=== PATIENT | male | born 1960 | race Caucasian/White ===

== ENCOUNTER 2022-07-03 08:36 | Inpatient (IN) | payer MEDICARE ==
[~2022-07-03] VITALS: Ht 182.9 cm; Wt 72.6 kg
[2022-07-03 09:03] LABS: BASOPHILS % 0.2 % (0.0-1.0); EOSINOPHILS % 0.1 % (0.0-6.0); HEMATOCRIT 35.7 % (38.2-49.6); HEMOGLOBIN 10.5 g/dL (14.0-18.0); LYMPHOCYTES # (AUTO) 0.5 (1.0-3.2); LYMPHOCYTES % 3.2 % (18.0-39.1); MEAN CORPUSCULAR HEMOGLOBIN 24.4 pg (28-32); MEAN CORPUSCULAR HGB CONC 29.4 g/dL (31-35); MONOCYTES # (AUTO) 0.6 (0.2-0.8); MONOCYTES % 3.5 % (4.4-11.3); NEUTROPHILS # (AUTO) 15.1 (2.1-6.9); NEUTROPHILS % 92.3 % (38.7-80.0); PLATELET COUNT 191 x10e3/uL (140-360)
[2022-07-03] MEDS ORDERED: SODIUM CHLORIDE 0.9% 500ML 500 ML IV ONE (09:15)
[2022-07-03 09:44] LABS: ALBUMIN 1.6 g/dL (3.5-5.0); ALBUMIN/GLOBULIN RATIO 0.4 (0.8-2.0); ANION GAP 16.5 mmol/L (8-16); CALCIUM 7.3 mg/dL (8.4-10.2); CREATININE, SERUM 1.99 mg/dL (0.72-1.25); MAGNESIUM 1.8 MG/DL (1.3-2.1); POTASSIUM 3.5 mmol/L (3.5-5.1)
[2022-07-03 09:56] LABS: CREATINE KINASE MB 1.7 ng/mL (0-5.0)
[2022-07-03] MEDS ORDERED: ONDANSETRON HCL INJ 2MG/ML 2ML 2 MG/ML VIAL IV PRN (10:00)
[2022-07-03] MEDS ORDERED: Vancomycin IV 1 GM in SODIUM CHLORIDE 0.9% 250ML 250 ML IV ONE (10:00)
[2022-07-03] MEDS ORDERED: HYDROCODONE/APAP 10MG-325MG TAB PO ONE (10:30)
[2022-07-03 10:38] LABS: INR 1.5; PROTHROMBIN TIME 18.3 seconds (11.9-14.5)
[2022-07-03 10:39] LABS: PARTIAL THROMBOPLASTIN TIME 40.8 seconds (23.8-35.5)
[2022-07-03] MEDS ORDERED: DOCUSATE SODIUM 100 MG CAP PO PRN (11:30)
[2022-07-03] MEDS ORDERED: ZINC OXIDE / BALSAM PERU 30 GM TUBE TOP PRN (12:00)
[2022-07-03] MEDS ORDERED: MIDAZOLAM HCL 2 MG/2 ML VIAL ONE (12:45)
[2022-07-03] MEDS ORDERED: FENTANYL CITRATE/PF 100MCG/2 ML INJ ONE (12:45)
[2022-07-03] MEDS: Clindamycin INJ 300 MG/50 ML 50 ML IV SCH ×2 (15:23→21:28)
[2022-07-03] MEDS ORDERED: SODIUM CHLORIDE 0.9% 250ML 250 ML ONE (15:30)
[2022-07-03 16:32] LABS: CREATINE KINASE MB 2.2 ng/mL (0-5.0)
[2022-07-03 17:06] VITALS: BP 128/66
[2022-07-03 20:00] VITALS: BP 139/76
[2022-07-03 21:00] VITALS: BP 139/76
[2022-07-04] VITALS (8 sets, daily range): BP systolic 124–139; BP diastolic 57–80
[2022-07-04] MEDS: Clindamycin INJ 300 MG/50 ML 50 ML IV SCH ×2 (05:28→13:29)
[2022-07-04 05:59] LABS: BASOPHILS % 0.2 % (0.0-1.0); EOSINOPHILS % 0.2 % (0.0-6.0); HEMATOCRIT 41.6 % (38.2-49.6); HEMOGLOBIN 12.5 g/dL (14.0-18.0); LYMPHOCYTES # (AUTO) 1.1 (1.0-3.2); LYMPHOCYTES % 6.2 % (18.0-39.1); MEAN CORPUSCULAR HEMOGLOBIN 24.2 pg (28-32); MEAN CORPUSCULAR VOLUME 80.5 fL (81-99); MONOCYTES # (AUTO) 0.8 (0.2-0.8); MONOCYTES % 4.6 % (4.4-11.3); NEUTROPHILS # (AUTO) 14.9 (2.1-6.9); NEUTROPHILS % 86.9 % (38.7-80.0); PLATELET COUNT 173 x10e3/uL (140-360); RED BLOOD COUNT 5.17 x10e6/uL (4.3-5.7); RED CELL DISTRIBUTION WIDTH 16.5 % (11.7-14.4)
[2022-07-04 06:25] LABS: ALBUMIN 1.6 g/dL (3.5-5.0); ALBUMIN/GLOBULIN RATIO 0.4 (0.8-2.0); ANION GAP 17.1 mmol/L (8-16); CALCIUM 7.9 mg/dL (8.4-10.2); CREATININE, SERUM 2.3 mg/dL (0.72-1.25); POTASSIUM 3.1 mmol/L (3.5-5.1)
[2022-07-04 08:45] LABS: CREATINE KINASE MB 1.5 ng/mL (0-5.0)
[2022-07-04 14:26] LABS: CREATINE KINASE MB 1.4 ng/mL (0-5.0)
[2022-07-04] MEDS: FUROSEMIDE INJ 10 MG/ML 4 ML VIAL IV SCH (17:03)
[2022-07-04] MEDS: TRAMADOL HCL 50 MG TAB PO PRN (17:03)
[2022-07-04] MEDS ORDERED: Vancomycin IV 1 GM in SODIUM CHLORIDE 0.9% 250ML 250 ML IV SCH ×2 (17:15→18:00)
[2022-07-04] MEDS: BALSAM PERU/CASTOR OIL 60 GM OINT...G. TP SCH (17:43)
[2022-07-04] MEDS: COLLAGENASE 5 GM TUBE TOP SCH (17:43)
[2022-07-05] VITALS (8 sets, daily range): BP systolic 131–143; BP diastolic 58–69
[2022-07-05] MEDS: TRAMADOL HCL 50 MG TAB PO PRN ×3 (01:47→21:49)
[2022-07-05] MEDS: FUROSEMIDE INJ 10 MG/ML 4 ML VIAL IV SCH (05:09)
[2022-07-05 07:37] LABS: ANION GAP 14.2 mmol/L (8-16); CALCIUM 7.9 mg/dL (8.4-10.2); CREATININE, SERUM 2.47 mg/dL (0.72-1.25); POTASSIUM 3.2 mmol/L (3.5-5.1)
[2022-07-05] MEDS: COLLAGENASE 5 GM TUBE TOP SCH (15:42)
[2022-07-05] MEDS: BALSAM PERU/CASTOR OIL 60 GM OINT...G. TP SCH (15:42)
[2022-07-05] MEDS ORDERED: SODIUM BICARBONATE 8.4% 100 ML in SODIUM CHLORIDE 0.45% 1,000 ML IV SCH (17:30)
[2022-07-05] MEDS: ONDANSETRON HCL INJ 2MG/ML 2ML 2 MG/ML VIAL IV PRN (20:43)
[2022-07-06] VITALS (7 sets, daily range): BP systolic 133–153; BP diastolic 63–68
[2022-07-06 06:01] LABS: BASOPHILS % 0.2 % (0.0-1.0); EOSINOPHILS % 0.2 % (0.0-6.0); HEMATOCRIT 40.2 % (38.2-49.6); HEMOGLOBIN 12.2 g/dL (14.0-18.0); LYMPHOCYTES # (AUTO) 1.2 (1.0-3.2); LYMPHOCYTES % 6.5 % (18.0-39.1); MEAN CORPUSCULAR HEMOGLOBIN 24.2 pg (28-32); MEAN CORPUSCULAR HGB CONC 30.3 g/dL (31-35); MEAN CORPUSCULAR VOLUME 79.8 fL (81-99); MONOCYTES # (AUTO) 0.9 (0.2-0.8); MONOCYTES % 5.2 % (4.4-11.3); NEUTROPHILS # (AUTO) 15.9 (2.1-6.9); NEUTROPHILS % 87.2 % (38.7-80.0); PLATELET COUNT 184 x10e3/uL (140-360); RED BLOOD COUNT 5.04 x10e6/uL (4.3-5.7); RED CELL DISTRIBUTION WIDTH 16.8 % (11.7-14.4)
[2022-07-06 06:19] LABS: CALCIUM 7.8 mg/dL (8.4-10.2); CREATININE, SERUM 2.67 mg/dL (0.72-1.25)
[2022-07-06] MEDS: TRAMADOL HCL 50 MG TAB PO PRN ×3 (09:14→16:41)
[2022-07-06] MEDS: SODIUM BICARBONATE 8.4% 150 ML in DEXTROSE 5% 1,000 ML IV SCH ×2 (11:02→20:56)
[2022-07-06 11:18] LABS: % IRON SATURATION 34 % (15-50); IRON 33 ug/dL (65-175); TOTAL IRON BINDING CAPACITY 98 ug/dL (261-478); TRANSFERRIN 70 mg/dL (174-364)
[2022-07-06 11:42] LABS: CLARITY,URINE SL CLOUDY (CLEAR); COLOR,URINE AMBER (YELLOW); LEUKOCYTE ESTERASE ,URINE NEGATIVE (NEGATIVE); NITRITE,URINE NEGATIVE (NEGATIVE); PROTEIN,URINE DIPSTICK 2+ (NEGATIVE)
[2022-07-06 11:43] LABS: KETONES,URINE NEGATIVE (NEGATIVE); URINE UROBILINOGEN 0.2 mg/dL (0.2 - 1)
[2022-07-06 11:48] LABS: BACTERIA,URINE MANY /HPF; EPITHELIAL CELLS,URINE FEW /LPF; RBC,URINE >50 /HPF (0-5)
[2022-07-06 11:53] LABS: TOTAL PROTEIN, URINE 47.4 mg/dL (1-14)
[2022-07-06 12:43] LABS: CREATININE,URINE RANDOM 75.57 mg/dL (63-166)
[2022-07-06] MEDS: BALSAM PERU/CASTOR OIL 60 GM OINT...G. TP SCH (12:52)
[2022-07-06] MEDS: COLLAGENASE 5 GM TUBE TOP SCH (12:52)
[2022-07-07] VITALS: BP 148/68
[2022-07-07] MEDS: TRAMADOL HCL 50 MG TAB PO PRN ×2 (05:12→21:52)
[2022-07-07 06:23] LABS: ALBUMIN 1.5 g/dL (3.5-5.0); ALBUMIN/GLOBULIN RATIO 0.3 (0.8-2.0); ANION GAP 16.7 mmol/L (8-16); CALCIUM 7.5 mg/dL (8.4-10.2); CREATININE, SERUM 2.41 mg/dL (0.72-1.25)
[2022-07-07 06:28] LABS: POTASSIUM 2.7 mmol/L (3.5-5.1)
[2022-07-07 06:30] LABS: BASOPHILS # (AUTO) 0.1 (0.0-0.1); BASOPHILS % 0.4 % (0.0-1.0); EOSINOPHILS % 0.3 % (0.0-6.0); HEMATOCRIT 35.8 % (38.2-49.6); HEMOGLOBIN 11.5 g/dL (14.0-18.0); LYMPHOCYTES # (AUTO) 1.1 (1.0-3.2); LYMPHOCYTES % 6.8 % (18.0-39.1); MEAN CORPUSCULAR HEMOGLOBIN 24.4 pg (28-32); MEAN CORPUSCULAR HGB CONC 32.1 g/dL (31-35); MEAN CORPUSCULAR VOLUME 75.8 fL (81-99); MONOCYTES # (AUTO) 0.8 (0.2-0.8); MONOCYTES % 5.3 % (4.4-11.3); NEUTROPHILS # (AUTO) 13.4 (2.1-6.9); NEUTROPHILS % 86.2 % (38.7-80.0); PLATELET COUNT 164 x10e3/uL (140-360); RED BLOOD COUNT 4.72 x10e6/uL (4.3-5.7); RED CELL DISTRIBUTION WIDTH 16.9 % (11.7-14.4)
[2022-07-07] MEDS ORDERED: POTASSIUM CHLORIDE 20MEQ/100ML 200 ML IV ONE (07:15)
[2022-07-07 08:14] VITALS: BP 152/75
[2022-07-07] MEDS: COLLAGENASE 5 GM TUBE TOP SCH (09:04)
[2022-07-07] MEDS: BALSAM PERU/CASTOR OIL 60 GM OINT...G. TP SCH (09:04)
[2022-07-07] MEDS: SODIUM BICARBONATE 8.4% 150 ML in DEXTROSE 5% 1,000 ML IV SCH ×2 (10:00→21:54)
[2022-07-07] MEDS ORDERED: Morphine 4mg INJECTION 4 MG/ML INJ IV STA (11:06)
[2022-07-07] MEDS: ONDANSETRON HCL INJ 2MG/ML 2ML 2 MG/ML VIAL IV PRN (11:20)
[2022-07-07 12:09] VITALS: BP 145/72
[2022-07-07] MEDS ORDERED: POTASSIUM CHLORIDE 20 MEQ TAB CR PO ONE (12:30)
[2022-07-07] MEDS ORDERED: ASPIRIN 81 MG ENTERIC COATED PO STA (12:51)
[2022-07-07] MEDS ORDERED: NIFEDIPINE CR 30 MG TAB PO ONE (13:30)
[2022-07-07 16:06] VITALS: BP 137/74
[2022-07-07 20:00] VITALS: BP 159/84
[2022-07-07] MEDS: ATORVASTATIN 40 MG TAB PO SCH (21:51)
[2022-07-07] MEDS ORDERED: METRONIDAZOLE 500MG/NS 100ML 100 ML IV ONE (22:45)
[2022-07-07] MEDS: Clindamycin INJ 300 MG/50 ML 50 ML IV SCH (22:47)
[2022-07-07] MEDS: METRONIDAZOLE 250MG/NS 50ML 50 ML IV SCH (22:51)
[2022-07-08] VITALS (7 sets, daily range): BP systolic 104–125; BP diastolic 59–71
[2022-07-08] MEDS: TRAMADOL HCL 50 MG TAB PO PRN ×2 (05:08→14:14)
[2022-07-08] MEDS: SODIUM BICARBONATE 8.4% 150 ML in DEXTROSE 5% 1,000 ML IV SCH ×2 (05:09→20:34)
[2022-07-08] MEDS: Clindamycin INJ 300 MG/50 ML 50 ML IV SCH ×3 (05:09→22:26)
[2022-07-08] MEDS: METRONIDAZOLE 250MG/NS 50ML 50 ML IV SCH ×2 (09:16→20:36)
[2022-07-08] MEDS: ASPIRIN 81 MG ENTERIC COATED PO SCH (09:17)
[2022-07-08] MEDS: NIFEDIPINE CR 30 MG TAB PO SCH (09:22)
[2022-07-08] MEDS: COLLAGENASE 5 GM TUBE TOP SCH (14:10)
[2022-07-08] MEDS: BALSAM PERU/CASTOR OIL 60 GM OINT...G. TP SCH (14:10)
[2022-07-08] MEDS: ATORVASTATIN 40 MG TAB PO SCH (20:34)
[2022-07-09] MEDS: TRAMADOL HCL 50 MG TAB PO PRN ×2 (00:20→20:40)
[2022-07-09 00:55] VITALS: BP 126/57
[2022-07-09 05:07] VITALS: BP 117/70
[2022-07-09] MEDS: Clindamycin INJ 300 MG/50 ML 50 ML IV SCH ×3 (05:31→20:41)
[2022-07-09 06:05] LABS: INR 1.37; PROTHROMBIN TIME 17.1 seconds (11.9-14.5)
[2022-07-09 06:28] LABS: ALBUMIN 1.6 g/dL (3.5-5.0); ALBUMIN/GLOBULIN RATIO 0.3 (0.8-2.0); ALKALINE PHOSPHATASE 180 IU/L (40-150); ANION GAP 15.9 mmol/L (8-16); BLOOD UREA NITROGEN 64 mg/dL (7-26); BUN/CREATININE RATIO 24 (6-25); CALCIUM 7.9 mg/dL (8.4-10.2); CARBON DIOXIDE 28 mmol/L (22-29); CHLORIDE 91 mmol/L (98-107); CREATININE, SERUM 2.69 mg/dL (0.72-1.25); GLUCOSE 278 mg/dL (74-118); PHOSPHORUS 5.3 MG/DL (2.3-4.7); SODIUM 132 mmol/L (136-145)
[2022-07-09 06:30] LABS: ALANINE AMINOTRANSFERASE < 6 IU/L (0-55)
[2022-07-09 06:31] LABS: POTASSIUM 2.9 mmol/L (3.5-5.1)
[2022-07-09] MEDS: SODIUM BICARBONATE 8.4% 150 ML in DEXTROSE 5% 1,000 ML IV SCH ×2 (08:00→20:46)
[2022-07-09] MEDS: NIFEDIPINE CR 30 MG TAB PO SCH (09:00)
[2022-07-09] MEDS: ASPIRIN 81 MG ENTERIC COATED PO SCH (09:00)
[2022-07-09] MEDS: COLLAGENASE 5 GM TUBE TOP SCH (09:00)
[2022-07-09] MEDS: BALSAM PERU/CASTOR OIL 60 GM OINT...G. TP SCH (09:00)
[2022-07-09 09:02] VITALS: BP 126/59
[2022-07-09 09:15] LABS: ANION GAP 15.9 mmol/L (8-16); CALCIUM 7.8 mg/dL (8.4-10.2); CREATININE, SERUM 2.75 mg/dL (0.72-1.25); MAGNESIUM 2.1 MG/DL (1.3-2.1)
[2022-07-09 09:17] LABS: POTASSIUM 2.9 mmol/L (3.5-5.1)
[2022-07-09] MEDS: METRONIDAZOLE 250MG/NS 50ML 50 ML IV SCH (09:23)
[2022-07-09 09:28] LABS: BASOPHILS # (AUTO) 0.1 (0.0-0.1); BASOPHILS % 0.4 % (0.0-1.0); EOSINOPHILS # (AUTO) 0.1 (0.0-0.4); EOSINOPHILS % 0.3 % (0.0-6.0); HEMOGLOBIN 11.3 g/dL (14.0-18.0); LYMPHOCYTES # (AUTO) 0.9 (1.0-3.2); LYMPHOCYTES % 5.9 % (18.0-39.1); MEAN CORPUSCULAR HEMOGLOBIN 24.1 pg (28-32); MEAN CORPUSCULAR HGB CONC 31.4 g/dL (31-35); MEAN CORPUSCULAR VOLUME 76.8 fL (81-99); MONOCYTES # (AUTO) 0.7 (0.2-0.8); MONOCYTES % 4.7 % (4.4-11.3); NEUTROPHILS # (AUTO) 13.1 (2.1-6.9); NEUTROPHILS % 87.8 % (38.7-80.0); PLATELET COUNT 202 x10e3/uL (140-360); RED BLOOD COUNT 4.69 x10e6/uL (4.3-5.7); RED CELL DISTRIBUTION WIDTH 16.3 % (11.7-14.4)
[2022-07-09] MEDS: POTASSIUM CHLORIDE 20MEQ/100ML 100 ML IV SCH ×3 (10:00→18:12)
[2022-07-09 12:01] VITALS: BP 131/61
[2022-07-09] MEDS ORDERED: ROCURONIUM BROMIDE 10 MG/ML 5ML VIAL IV ONE (12:31)
[2022-07-09] MEDS ORDERED: PROPOFOL IV EMULSION 10 MG/ML 20 ML VIAL ONE (12:31)
[2022-07-09] MEDS ORDERED: POVIDONE IODINE 0.05% 0.05 % ML PO ONE (12:31)
[2022-07-09] MEDS ORDERED: SUCCINYLCHOLINE CHLORIDE 20 MG/ML 10ML VIAL ONE (12:31)
[2022-07-09] MEDS ORDERED: ONDANSETRON HCL INJ 2MG/ML 2ML 2 MG/ML VIAL ONE (12:31)
[2022-07-09] MEDS ORDERED: SEVOFLURANE INHAL SOLN 250 ML PEN BTL ONE (12:31)
[2022-07-09] MEDS ORDERED: LIDOCAINE HCL 2% LOCAL INJ 5 ML SDV VIAL INJ ONE (12:31)
[2022-07-09] MEDS ORDERED: FENTANYL CITRATE/PF 100MCG/2 ML INJ ONE (17:21)
[2022-07-09] MEDS: ATORVASTATIN 40 MG TAB PO SCH (20:40)
[2022-07-09 22:04] VITALS: BP 139/70
[2022-07-09 23:06] VITALS: BP 139/70
[2022-07-10] VITALS (9 sets, daily range): BP systolic 109–140; BP diastolic 60–90
[2022-07-10] MEDS: ONDANSETRON HCL INJ 2MG/ML 2ML 2 MG/ML VIAL IV PRN ×2 (01:54→09:33)
[2022-07-10] MEDS: Morphine 4mg INJECTION 4 MG/ML INJ IV PRN ×3 (01:54→20:35)
[2022-07-10 06:24] LABS: BASOPHILS % 0.2 % (0.0-1.0); EOSINOPHILS # (AUTO) 0.1 (0.0-0.4); EOSINOPHILS % 0.5 % (0.0-6.0); HEMATOCRIT 33.3 % (38.2-49.6); HEMOGLOBIN 10.9 g/dL (14.0-18.0); LYMPHOCYTES # (AUTO) 1.1 (1.0-3.2); LYMPHOCYTES % 8.5 % (18.0-39.1); MEAN CORPUSCULAR HEMOGLOBIN 24.3 pg (28-32); MEAN CORPUSCULAR HGB CONC 32.7 g/dL (31-35); MEAN CORPUSCULAR VOLUME 74.3 fL (81-99); MONOCYTES # (AUTO) 0.7 (0.2-0.8); MONOCYTES % 5.6 % (4.4-11.3); NEUTROPHILS # (AUTO) 10.6 (2.1-6.9); NEUTROPHILS % 84.6 % (38.7-80.0); PLATELET COUNT 221 x10e3/uL (140-360); RED BLOOD COUNT 4.48 x10e6/uL (4.3-5.7); RED CELL DISTRIBUTION WIDTH 16.6 % (11.7-14.4)
[2022-07-10] MEDS: Clindamycin INJ 300 MG/50 ML 50 ML IV SCH ×2 (06:39→14:02)
[2022-07-10 06:44] LABS: ANION GAP 15.4 mmol/L (8-16); CALCIUM 7.8 mg/dL (8.4-10.2); CREATININE, SERUM 2.58 mg/dL (0.72-1.25); MAGNESIUM 2.2 MG/DL (1.3-2.1); POTASSIUM 3.4 mmol/L (3.5-5.1)
[2022-07-10] MEDS: SODIUM BICARBONATE 8.4% 150 ML in DEXTROSE 5% 1,000 ML IV SCH (07:00)
[2022-07-10] MEDS: METOPROLOL SUCCINATE 50 MG TAB XL PO SCH (09:19)
[2022-07-10] MEDS: NIFEDIPINE CR 30 MG TAB PO SCH (09:19)
[2022-07-10] MEDS: ASPIRIN 81 MG ENTERIC COATED PO SCH (09:20)
[2022-07-10] MEDS: POTASSIUM CHLORIDE 20MEQ/100ML 100 ML IV SCH ×2 (11:07→13:30)
[2022-07-10] MEDS: TRAMADOL HCL 50 MG TAB PO PRN (17:06)
[2022-07-10] MEDS: FUROSEMIDE INJ 10 MG/ML 4 ML VIAL IV SCH (20:32)
[2022-07-10] MEDS: ATORVASTATIN 40 MG TAB PO SCH (20:32)
[2022-07-10] MEDS: COLLAGENASE 5 GM TUBE TOP SCH (20:34)
[2022-07-10] MEDS: BALSAM PERU/CASTOR OIL 60 GM OINT...G. TP SCH (21:00)
[2022-07-11] VITALS (8 sets, daily range): BP systolic 93–124; BP diastolic 52–72
[2022-07-11] MEDS: Morphine 4mg INJECTION 4 MG/ML INJ IV PRN ×4 (03:31→23:53)
[2022-07-11 05:11] LABS: ALBUMIN 1.5 g/dL (3.5-5.0); ALBUMIN/GLOBULIN RATIO 0.3 (0.8-2.0); ALKALINE PHOSPHATASE 162 IU/L (40-150); ANION GAP 15.7 mmol/L (8-16); BLOOD UREA NITROGEN 68 mg/dL (7-26); BUN/CREATININE RATIO 28 (6-25); CALCIUM 7.9 mg/dL (8.4-10.2); CARBON DIOXIDE 26 mmol/L (22-29); CHLORIDE 93 mmol/L (98-107); CREATININE, SERUM 2.41 mg/dL (0.72-1.25); GLUCOSE 191 mg/dL (74-118); POTASSIUM 3.7 mmol/L (3.5-5.1); SODIUM 131 mmol/L (136-145)
[2022-07-11 05:20] LABS: ALANINE AMINOTRANSFERASE < 6 IU/L (0-55)
[2022-07-11] MEDS: FUROSEMIDE INJ 10 MG/ML 4 ML VIAL IV SCH (08:35)
[2022-07-11] MEDS: METOPROLOL SUCCINATE 50 MG TAB XL PO SCH (08:36)
[2022-07-11] MEDS: ASPIRIN 81 MG ENTERIC COATED PO SCH (08:36)
[2022-07-11] MEDS: NIFEDIPINE CR 30 MG TAB PO SCH (08:36)
[2022-07-11] MEDS: COLLAGENASE 5 GM TUBE TOP SCH ×2 (09:00→09:22)
[2022-07-11] MEDS: BALSAM PERU/CASTOR OIL 60 GM OINT...G. TP SCH (09:22)
[2022-07-11] MEDS: ONDANSETRON HCL INJ 2MG/ML 2ML 2 MG/ML VIAL IV PRN ×2 (09:38→16:03)
[2022-07-11] MEDS: TRAMADOL HCL 50 MG TAB PO PRN (12:45)
[2022-07-11] MEDS ORDERED: ZOLPIDEM TARTRATE 5 MG TAB PO PRN (20:15)
[2022-07-11] MEDS: ATORVASTATIN 40 MG TAB PO SCH (20:58)
[2022-07-12] VITALS (7 sets, daily range): BP systolic 107–121; BP diastolic 55–79
[2022-07-12] MEDS: ASPIRIN 81 MG ENTERIC COATED PO SCH (09:20)
[2022-07-12] MEDS: METOPROLOL SUCCINATE 50 MG TAB XL PO SCH (09:21)
[2022-07-12] MEDS: NIFEDIPINE CR 30 MG TAB PO SCH (09:21)
[2022-07-12] MEDS: COLLAGENASE 5 GM TUBE TOP SCH (09:22)
[2022-07-12] MEDS: BALSAM PERU/CASTOR OIL 60 GM OINT...G. TP SCH (09:22)
[2022-07-12] MEDS: TRAMADOL HCL 50 MG TAB PO PRN ×2 (16:23→23:53)
[2022-07-12] MEDS: ATORVASTATIN 40 MG TAB PO SCH (20:25)
[2022-07-13] VITALS (8 sets, daily range): BP systolic 105–130; BP diastolic 54–83
[2022-07-13 06:41] LABS: BASOPHILS # (AUTO) 0.1 (0.0-0.1); BASOPHILS % 0.6 % (0.0-1.0); EOSINOPHILS # (AUTO) 0.1 (0.0-0.4); EOSINOPHILS % 0.7 % (0.0-6.0); HEMOGLOBIN 10.3 g/dL (14.0-18.0); LYMPHOCYTES # (AUTO) 1.1 (1.0-3.2); LYMPHOCYTES % 8.5 % (18.0-39.1); MEAN CORPUSCULAR HEMOGLOBIN 26.9 pg (28-32); MEAN CORPUSCULAR HGB CONC 32.2 g/dL (31-35); MEAN CORPUSCULAR VOLUME 83.6 fL (81-99); MONOCYTES # (AUTO) 0.7 (0.2-0.8); MONOCYTES % 5.3 % (4.4-11.3); NEUTROPHILS # (AUTO) 10.5 (2.1-6.9); NEUTROPHILS % 84.1 % (38.7-80.0); PLATELET COUNT 231 x10e3/uL (140-360); RED BLOOD COUNT 3.83 x10e6/uL (4.3-5.7); RED CELL DISTRIBUTION WIDTH 20.4 % (11.7-14.4)
[2022-07-13 06:45] LABS: ANION GAP 19.1 mmol/L (8-16); CALCIUM 8.1 mg/dL (8.4-10.2); CREATININE, SERUM 2.48 mg/dL (0.72-1.25); POTASSIUM 4.1 mmol/L (3.5-5.1)
[2022-07-13] MEDS: Morphine 4mg INJECTION 4 MG/ML INJ IV PRN ×3 (06:52→20:17)
[2022-07-13] MEDS: ONDANSETRON HCL INJ 2MG/ML 2ML 2 MG/ML VIAL IV PRN ×2 (06:52→14:25)
[2022-07-13] MEDS: COLLAGENASE 5 GM TUBE TOP SCH ×2 (09:00→09:44)
[2022-07-13] MEDS ORDERED: SODIUM CHLORIDE 0.9% 250ML 250 ML ONE (09:31)
[2022-07-13] MEDS: ASPIRIN 81 MG ENTERIC COATED PO SCH (09:44)
[2022-07-13] MEDS: NIFEDIPINE CR 30 MG TAB PO SCH (09:45)
[2022-07-13] MEDS: METOPROLOL SUCCINATE 50 MG TAB XL PO SCH (09:45)
[2022-07-13] MEDS: TRAMADOL HCL 50 MG TAB PO PRN ×2 (09:54→16:07)
[2022-07-13] MEDS: ACETAMINOPHEN 325 MG TAB PO PRN ×2 (09:55→16:07)
[2022-07-13] MEDS: BALSAM PERU/CASTOR OIL 60 GM OINT...G. TP SCH (09:56)
[2022-07-13] MEDS: METOLAZONE 5 MG TAB PO SCH (12:42)
[2022-07-13] MEDS: BUMETANIDE INJ 0.25MG/ML 4ML VIAL IV SCH ×3 (12:42→23:58)
[2022-07-13] MEDS: ATORVASTATIN 40 MG TAB PO SCH (20:16)
[2022-07-14] VITALS (7 sets, daily range): BP systolic 102–126; BP diastolic 57–76
[2022-07-14] MEDS: Morphine 4mg INJECTION 4 MG/ML INJ IV PRN ×3 (03:34→19:17)
[2022-07-14] MEDS: BUMETANIDE INJ 0.25MG/ML 4ML VIAL IV SCH ×3 (05:42→17:17)
[2022-07-14 06:31] LABS: ALBUMIN 1.7 g/dL (3.5-5.0); ALBUMIN/GLOBULIN RATIO 0.4 (0.8-2.0); ALKALINE PHOSPHATASE 250 IU/L (40-150); ANION GAP 16.6 mmol/L (8-16); BLOOD UREA NITROGEN 71 mg/dL (7-26); BUN/CREATININE RATIO 28 (6-25); CARBON DIOXIDE 27 mmol/L (22-29); CHLORIDE 92 mmol/L (98-107); CREATININE, SERUM 2.52 mg/dL (0.72-1.25); GLUCOSE 129 mg/dL (74-118); MAGNESIUM 2.1 MG/DL (1.3-2.1); PHOSPHORUS 5.8 MG/DL (2.3-4.7); POTASSIUM 3.6 mmol/L (3.5-5.1); SODIUM 132 mmol/L (136-145)
[2022-07-14 06:32] LABS: ALANINE AMINOTRANSFERASE < 6 IU/L (0-55)
[2022-07-14] MEDS: METOLAZONE 5 MG TAB PO SCH (09:52)
[2022-07-14] MEDS: NIFEDIPINE CR 30 MG TAB PO SCH (09:54)
[2022-07-14] MEDS: ASPIRIN 81 MG ENTERIC COATED PO SCH (09:54)
[2022-07-14] MEDS: METOPROLOL SUCCINATE 50 MG TAB XL PO SCH (09:54)
[2022-07-14] MEDS: BALSAM PERU/CASTOR OIL 60 GM OINT...G. TP SCH (11:00)
[2022-07-14] MEDS: COLLAGENASE 5 GM TUBE TOP SCH (11:00)
[2022-07-14] MEDS: TRAMADOL HCL 50 MG TAB PO PRN ×2 (14:57→22:57)
[2022-07-14] MEDS: ACETAMINOPHEN 325 MG TAB PO PRN (14:58)
[2022-07-14 19:55] LABS: BASOPHILS # (AUTO) 0.1 (0.0-0.1); BASOPHILS % 0.7 % (0.0-1.0); EOSINOPHILS % 0.3 % (0.0-6.0); HEMATOCRIT 28.2 % (38.2-49.6); HEMOGLOBIN 8.5 g/dL (14.0-18.0); LYMPHOCYTES # (AUTO) 1.1 (1.0-3.2); LYMPHOCYTES % 8.3 % (18.0-39.1); MEAN CORPUSCULAR HEMOGLOBIN 24.1 pg (28-32); MEAN CORPUSCULAR HGB CONC 30.1 g/dL (31-35); MEAN CORPUSCULAR VOLUME 80.1 fL (81-99); MONOCYTES # (AUTO) 0.8 (0.2-0.8); MONOCYTES % 6.2 % (4.4-11.3); NEUTROPHILS # (AUTO) 11.3 (2.1-6.9); NEUTROPHILS % 83.9 % (38.7-80.0); PLATELET COUNT 343 x10e3/uL (140-360); RED BLOOD COUNT 3.52 x10e6/uL (4.3-5.7); RED CELL DISTRIBUTION WIDTH 17.2 % (11.7-14.4)
[2022-07-14] MEDS: ATORVASTATIN 40 MG TAB PO SCH (22:57)
[2022-07-15] VITALS (7 sets, daily range): BP systolic 95–118; BP diastolic 48–68
[2022-07-15] MEDS: BUMETANIDE INJ 0.25MG/ML 4ML VIAL IV SCH ×4 (00:23→18:14)
[2022-07-15] MEDS: Morphine 4mg INJECTION 4 MG/ML INJ IV PRN (04:18)
[2022-07-15] MEDS: TRAMADOL HCL 50 MG TAB PO PRN (06:15)
[2022-07-15] MEDS: NIFEDIPINE CR 30 MG TAB PO SCH (09:00)
[2022-07-15] MEDS: ASPIRIN 81 MG ENTERIC COATED PO SCH (09:00)
[2022-07-15] MEDS: METOLAZONE 5 MG TAB PO SCH (09:00)
[2022-07-15] MEDS: METOPROLOL SUCCINATE 50 MG TAB XL PO SCH (09:00)
[2022-07-15] MEDS: COLLAGENASE 5 GM TUBE TOP SCH (09:21)
[2022-07-15] MEDS: BALSAM PERU/CASTOR OIL 60 GM OINT...G. TP SCH (09:21)
[2022-07-15] MEDS ORDERED: LIDOCAINE 1% 10 ML MULTIDOSE VIAL IJ ONE (11:05)
[2022-07-15] MEDS ORDERED: FENTANYL CITRATE/PF 100MCG/2 ML INJ ONE (11:49)
[2022-07-15] MEDS ORDERED: SUGAMMADEX SODIUM 200 MG/2 ML VIAL IV ONE (11:59)
[2022-07-15] MEDS ORDERED: SODIUM CHLORIDE 0.9% 100 ML ONE (12:03)
[2022-07-15] MEDS ORDERED: ROCURONIUM BROMIDE 10 MG/ML 5ML VIAL IV ONE (13:18)
[2022-07-15] MEDS ORDERED: POVIDONE IODINE 0.05% 0.05 % ML PO ONE (13:18)
[2022-07-15] MEDS ORDERED: PROPOFOL IV EMULSION 10 MG/ML 20 ML VIAL ONE (13:18)
[2022-07-15] MEDS ORDERED: LIDOCAINE HCL 2% LOCAL INJ 5 ML SDV VIAL INJ ONE (13:18)
[2022-07-15] MEDS ORDERED: DESFLURANE 240 ML BTL INH ONE (13:18)
[2022-07-15] MEDS ORDERED: EPHEDRINE SULFATE INJ 50 MG/ML VIAL ONE (13:18)
[2022-07-15] MEDS ORDERED: ONDANSETRON HCL INJ 2MG/ML 2ML 2 MG/ML VIAL ONE (13:18)
[2022-07-15] MEDS ORDERED: PHENYLEPHRINE HCL 1% 10 MG/ML VIAL ONE (13:18)
[2022-07-15] MEDS ORDERED: ETOMIDATE 2 MG/ML 10 ML INJ IV ONE (13:18)
[2022-07-15] MEDS: ATORVASTATIN 40 MG TAB PO SCH (20:28)
[2022-07-15] MEDS ORDERED: SODIUM CHLORIDE 0.9% 500ML 500 ML IV ONE (21:15)
[2022-07-15 22:28] LABS: BASOPHILS # (AUTO) 0.1 (0.0-0.1); BASOPHILS % 0.5 % (0.0-1.0); EOSINOPHILS % 0.2 % (0.0-6.0); HEMATOCRIT 21.2 % (38.2-49.6); LYMPHOCYTES # (AUTO) 1.2 (1.0-3.2); LYMPHOCYTES % 8.3 % (18.0-39.1); MEAN CORPUSCULAR HEMOGLOBIN 24.6 pg (28-32); MEAN CORPUSCULAR HGB CONC 30.7 g/dL (31-35); MEAN CORPUSCULAR VOLUME 80.3 fL (81-99); MONOCYTES # (AUTO) 0.8 (0.2-0.8); MONOCYTES % 5.8 % (4.4-11.3); NEUTROPHILS # (AUTO) 12.2 (2.1-6.9); NEUTROPHILS % 84.6 % (38.7-80.0); PLATELET COUNT 365 x10e3/uL (140-360); RED BLOOD COUNT 2.64 x10e6/uL (4.3-5.7); RED CELL DISTRIBUTION WIDTH 17.2 % (11.7-14.4)
[2022-07-15 22:30] LABS: HEMOGLOBIN 6.5 g/dL (14.0-18.0)
[2022-07-16] MEDS ORDERED: SODIUM CHLORIDE 0.9% 250ML 250 ML IV ONE (03:30)
[2022-07-16] MEDS: BUMETANIDE INJ 0.25MG/ML 4ML VIAL IV SCH ×4 (03:31→17:08)
[2022-07-16 04:00] VITALS: BP 101/60
[2022-07-16 06:07] LABS: BASOPHILS # (AUTO) 0.1 (0.0-0.1); BASOPHILS % 0.9 % (0.0-1.0); EOSINOPHILS % 0.2 % (0.0-6.0); HEMATOCRIT 28.9 % (38.2-49.6); HEMOGLOBIN 9.1 g/dL (14.0-18.0); LYMPHOCYTES # (AUTO) 1.1 (1.0-3.2); LYMPHOCYTES % 8.1 % (18.0-39.1); MEAN CORPUSCULAR HEMOGLOBIN 25.1 pg (28-32); MEAN CORPUSCULAR HGB CONC 31.5 g/dL (31-35); MEAN CORPUSCULAR VOLUME 79.8 fL (81-99); MONOCYTES # (AUTO) 0.9 (0.2-0.8); MONOCYTES % 6.7 % (4.4-11.3); NEUTROPHILS # (AUTO) 11.5 (2.1-6.9); NEUTROPHILS % 83.5 % (38.7-80.0); PLATELET COUNT 389 x10e3/uL (140-360); RED BLOOD COUNT 3.62 x10e6/uL (4.3-5.7); RED CELL DISTRIBUTION WIDTH 15.9 % (11.7-14.4)
[2022-07-16 06:28] LABS: ALBUMIN 1.5 g/dL (3.5-5.0); ALBUMIN/GLOBULIN RATIO 0.4 (0.8-2.0); ALKALINE PHOSPHATASE 212 IU/L (40-150); ANION GAP 21.6 mmol/L (8-16); BLOOD UREA NITROGEN 71 mg/dL (7-26); BUN/CREATININE RATIO 27 (6-25); CALCIUM 7.4 mg/dL (8.4-10.2); CARBON DIOXIDE 25 mmol/L (22-29); CHLORIDE 93 mmol/L (98-107); CREATININE, SERUM 2.66 mg/dL (0.72-1.25); GLUCOSE 138 mg/dL (74-118); POTASSIUM 3.6 mmol/L (3.5-5.1); SODIUM 136 mmol/L (136-145)
[2022-07-16 06:29] LABS: ALANINE AMINOTRANSFERASE < 6 IU/L (0-55)
[2022-07-16 07:56] VITALS: BP 101/60
[2022-07-16] MEDS: ASPIRIN 81 MG ENTERIC COATED PO SCH (08:32)
[2022-07-16] MEDS: METOLAZONE 5 MG TAB PO SCH (08:33)
[2022-07-16] MEDS: NIFEDIPINE CR 30 MG TAB PO SCH (08:34)
[2022-07-16 08:37] VITALS: BP 123/70
[2022-07-16] MEDS: COLLAGENASE 5 GM TUBE TOP SCH (09:05)
[2022-07-16] MEDS: BALSAM PERU/CASTOR OIL 60 GM OINT...G. TP SCH (09:05)
[2022-07-16] MEDS ORDERED: ACETAMINOPHEN/CODEINE 300MG - 30MG TAB PO PRN (10:15)
[2022-07-16] MEDS: ACETAMINOPHEN 325 MG TAB PO SCH ×2 (11:29→21:17)
[2022-07-16 12:00] VITALS: BP 109/92
[2022-07-16] MEDS: TRAMADOL HCL 50 MG TAB PO SCH ×2 (14:20→21:16)
[2022-07-16] MEDS: GABAPENTIN 100 MG CAP PO SCH ×2 (14:20→21:16)
[2022-07-16 15:41] VITALS: BP 111/68
[2022-07-16] MEDS: ONDANSETRON HCL INJ 2MG/ML 2ML 2 MG/ML VIAL IV PRN (17:08)
[2022-07-16] MEDS: ATORVASTATIN 40 MG TAB PO SCH (21:16)
[2022-07-16 21:21] VITALS: BP 112/69
[2022-07-17] VITALS (19 sets, daily range): BP systolic 100–122; BP diastolic 48–70
[2022-07-17] MEDS: BUMETANIDE INJ 0.25MG/ML 4ML VIAL IV SCH ×4 (03:16→16:17)
[2022-07-17] MEDS: TRAMADOL HCL 50 MG TAB PO SCH ×3 (06:00→21:28)
[2022-07-17] MEDS: GABAPENTIN 100 MG CAP PO SCH ×3 (06:00→22:00)
[2022-07-17] MEDS: METOLAZONE 5 MG TAB PO SCH (08:25)
[2022-07-17] MEDS: ASPIRIN 81 MG ENTERIC COATED PO SCH (08:26)
[2022-07-17] MEDS: ACETAMINOPHEN 325 MG TAB PO SCH ×2 (08:27→22:15)
[2022-07-17] MEDS: BALSAM PERU/CASTOR OIL 60 GM OINT...G. TP SCH (08:28)
[2022-07-17] MEDS: COLLAGENASE 5 GM TUBE TOP SCH ×2 (08:28→08:35)
[2022-07-17] MEDS: ONDANSETRON HCL INJ 2MG/ML 2ML 2 MG/ML VIAL IV PRN ×3 (08:31→16:17)
[2022-07-17] MEDS: NIFEDIPINE CR 30 MG TAB PO SCH (09:00)
[2022-07-17] MEDS ORDERED: SUCCINYLCHOLINE CHLORIDE 20 MG/ML 10ML VIAL ONE (12:21)
[2022-07-17] MEDS ORDERED: EPINEPHRINE HCL SYRINGE ONE (12:21)
[2022-07-17] MEDS ORDERED: GABAPENTIN100 MG PO (13:41)
[2022-07-17] MEDS ORDERED: METOLAZONE5 MG PO (13:41)
[2022-07-17] MEDS ORDERED: Atorvastatin PO (13:41)
[2022-07-17] MEDS ORDERED: ACETAMINOPHEN325 M1 PO (13:41)
[2022-07-17] MEDS ORDERED: NIFEDIPINE ER30 M1 PO (13:41)
[2022-07-17] MEDS ORDERED: EPINEPHRINE HCL 1:1000 1ML 4 MG in DEXTROSE 5% 250ML 250 ML IV SCH (17:45)
[2022-07-17] MEDS ORDERED: PROPOFOL IV EMULSION 10MG/ML 100 ML ONE (19:35)
[2022-07-17] MEDS ORDERED: Morphine 2mg Syringe 2 MG/ML SYR IV PRN (21:00)
[2022-07-17] MEDS: ATORVASTATIN 40 MG TAB PO SCH (21:00)
[2022-07-17] MEDS: HEPARIN SOD (PORCINE) 5,000 UNIT/ML VIAL SC SCH (21:31)
[2022-07-17 22:20] LABS: ABG HCO3 27 mmol/L (22-26); ABG PCO2 46 mmHg (35-45); ABG PH 7.38 (7.35-7.45); ABG PO2 115 mmHg (80-105); ABG TCO2 29
[2022-07-17] MEDS: PROPOFOL IV EMULSION 10MG/ML 100 ML IV PRN (23:05)
[2022-07-17 23:33] LABS: BASOPHILS % 0.3 % (0.0-1.0); HEMATOCRIT 30.5 % (38.2-49.6); HEMOGLOBIN 9.6 g/dL (14.0-18.0); LYMPHOCYTES # (AUTO) 0.2 (1.0-3.2); MEAN CORPUSCULAR HEMOGLOBIN 25.1 pg (28-32); MEAN CORPUSCULAR HGB CONC 31.5 g/dL (31-35); MEAN CORPUSCULAR VOLUME 79.6 fL (81-99); MONOCYTES # (AUTO) 0.1 (0.2-0.8); MONOCYTES % 4.9 % (4.4-11.3); NEUTROPHILS # (AUTO) 2.5 (2.1-6.9); NEUTROPHILS % 86.5 % (38.7-80.0); PLATELET COUNT 406 x10e3/uL (140-360); RED BLOOD COUNT 3.83 x10e6/uL (4.3-5.7); RED CELL DISTRIBUTION WIDTH 16.6 % (11.7-14.4)
[2022-07-17 23:50] LABS: ALBUMIN 1.1 g/dL (3.5-5.0); ALBUMIN/GLOBULIN RATIO 0.4 (0.8-2.0); ALKALINE PHOSPHATASE 235 IU/L (40-150); ANION GAP 18.1 mmol/L (8-16); BLOOD UREA NITROGEN 71 mg/dL (7-26); BUN/CREATININE RATIO 26 (6-25); CARBON DIOXIDE 21 mmol/L (22-29); CHLORIDE 100 mmol/L (98-107); CREATINE KINASE 41 IU/L (30-200); CREATININE, SERUM 2.76 mg/dL (0.72-1.25); GLUCOSE 238 mg/dL (74-118); POTASSIUM 3.1 mmol/L (3.5-5.1); SODIUM 136 mmol/L (136-145)
[2022-07-17 23:52] LABS: ALANINE AMINOTRANSFERASE < 6 IU/L (0-55); CALCIUM 6.1 mg/dL (8.4-10.2)
[2022-07-17] MEDS ORDERED: CALCIUM CHLORIDE 10% 1.36 MEQ/ML 10ML SYR IV STA (23:54)
[2022-07-18] VITALS (68 sets, daily range): BP systolic 18–124; BP diastolic 13–62
[2022-07-18] MEDS ORDERED: LACTATED RINGER'S 500 ML IV ONE
[2022-07-18] MEDS ORDERED: POTASSIUM CHLORIDE 20MEQ/100ML 100 ML IV ONE (00:15)
[2022-07-18] MEDS: BUMETANIDE INJ 0.25MG/ML 4ML VIAL IV SCH ×4 (00:51→18:03)
[2022-07-18] MEDS: NOREPINEPHRINE 8 MG/D5W 250 ML 250 ML IV SCH ×3 (00:52→22:56)
[2022-07-18] MEDS ORDERED: LACTATED RINGER'S 1,000 ML ONE (00:59)
[2022-07-18 02:41] LABS: ABG HCO3 24 mmol/L (22-26); ABG PCO2 27 mmHg (35-45); ABG PH 7.55 (7.35-7.45); ABG PO2 66 mmHg (80-105); ABG TCO2 25
[2022-07-18] MEDS ORDERED: SODIUM CHLORIDE 0.9% 250ML 250 ML ONE (02:51)
[2022-07-18] MEDS ORDERED: Vancomycin IV 1 GM VIAL ONE (02:51)
[2022-07-18] MEDS: PROPOFOL IV EMULSION 10MG/ML 100 ML IV PRN ×4 (04:49→22:55)
[2022-07-18 05:59] LABS: BASOPHILS % 0.5 % (0.0-1.0); EOSINOPHILS % 0.3 % (0.0-6.0); HEMATOCRIT 30.2 % (38.2-49.6); HEMOGLOBIN 9.5 g/dL (14.0-18.0); LYMPHOCYTES # (AUTO) 0.5 (1.0-3.2); LYMPHOCYTES % 13.7 % (18.0-39.1); MEAN CORPUSCULAR HEMOGLOBIN 25.3 pg (28-32); MEAN CORPUSCULAR HGB CONC 31.5 g/dL (31-35); MEAN CORPUSCULAR VOLUME 80.3 fL (81-99); MONOCYTES # (AUTO) 0.2 (0.2-0.8); MONOCYTES % 3.9 % (4.4-11.3); NEUTROPHILS # (AUTO) 3.1 (2.1-6.9); NEUTROPHILS % 81.1 % (38.7-80.0); PLATELET COUNT 400 x10e3/uL (140-360); RED BLOOD COUNT 3.76 x10e6/uL (4.3-5.7); RED CELL DISTRIBUTION WIDTH 16.8 % (11.7-14.4)
[2022-07-18] MEDS: TRAMADOL HCL 50 MG TAB PO SCH (06:00)
[2022-07-18] MEDS: GABAPENTIN 100 MG CAP PO SCH ×3 (06:00→22:00)
[2022-07-18 06:03] LABS: ANION GAP 17.1 mmol/L (8-16); CALCIUM 7.8 mg/dL (8.4-10.2); CREATININE, SERUM 3.53 mg/dL (0.72-1.25); INR 1.56; MAGNESIUM 2.1 MG/DL (1.3-2.1); PHOSPHORUS 7.4 MG/DL (2.3-4.7); POTASSIUM 4.1 mmol/L (3.5-5.1); PROTHROMBIN TIME 18.9 seconds (11.9-14.5)
[2022-07-18 08:44] LABS: BAND NEUTROPHILS % (MANUAL) 4 %; LYMPHOCYTES % (MANUAL) 17 % (19-48); MONOCYTES % (MANUAL) 3 % (3.4-9.0); MYELOCYTES % (MANUAL) 2 % (0-0); NEUTROPHILS % (MANUAL) 73 % (40-74); NUCLEATED RED BLOOD CELLS 1; PLATELET ESTIMATE SLIGHTLY INCREASED
[2022-07-18] MEDS ORDERED: SODIUM CHLORIDE 0.9% 500ML 500 ML ONE (08:44)
[2022-07-18 08:47] LABS: ANISOCYTOSIS SLIGHT; PLATELET MORPHOLOGY COMMENT FEW LARGE; POIKILOCYTOSIS SLIGHT
[2022-07-18 08:48] LABS: RBC MORPHOLOGY COMMENT ABNORMAL
[2022-07-18] MEDS: BALSAM PERU/CASTOR OIL 60 GM OINT...G. TP SCH (09:00)
[2022-07-18] MEDS ORDERED: SODIUM CHLORIDE 0.9% 1000ML 1,000 ML ONE (09:10)
[2022-07-18] MEDS: HEPARIN SOD (PORCINE) 5,000 UNIT/ML VIAL SC SCH ×2 (10:25→21:14)
[2022-07-18] MEDS: FAMOTIDINE 20 MG/2 ML VIAL IV SCH (10:25)
[2022-07-18 11:25] LABS: ABG HCO3 32 mmol/L (22-26); ABG PCO2 70 mmHg (35-45); ABG PH 7.26 (7.35-7.45); ABG PO2 64 mmHg (80-105); ABG TCO2 34
[2022-07-18 11:27] LABS: ABG HCO3 31 mmol/L (22-26); ABG PCO2 63 mmHg (35-45); ABG PO2 72 mmHg (80-105)
[2022-07-18 11:28] LABS: ABG TCO2 33
[2022-07-18] MEDS: ASPIRIN 81 MG ENTERIC COATED PO SCH (13:31)
[2022-07-18] MEDS: ACETAMINOPHEN 325 MG TAB PO SCH ×2 (13:32→22:15)
[2022-07-18] MEDS: METOLAZONE 5 MG TAB PO SCH (14:36)
[2022-07-18] MEDS ORDERED: DEXTROSE 50% SYRINGE 50 ML IV PRN (15:45)
[2022-07-18 15:58] LABS: ABG HCO3 31 mmol/L (22-26); ABG PCO2 59 mmHg (35-45); ABG PH 7.33 (7.35-7.45); ABG PO2 91 mmHg (80-105)
[2022-07-18 15:59] LABS: ABG TCO2 33
[2022-07-18] MEDS: INSULIN REGULAR, HUMAN 100 UNIT/1 ML SQ SCH ×2 (16:30→21:00)
[2022-07-18] MEDS: ATORVASTATIN 40 MG TAB PO SCH (21:00)
[2022-07-19] VITALS (59 sets, daily range): BP systolic 58–119; BP diastolic 43–100
[2022-07-19] MEDS: BUMETANIDE INJ 0.25MG/ML 4ML VIAL IV SCH ×2 (00:20→05:37)
[2022-07-19] MEDS: ACETAMINOPHEN 325 MG TAB PO PRN (00:49)
[2022-07-19] MEDS: SODIUM CHLORIDE 0.9% 250ML IRRIG IR SCH ×2 (01:03→08:14)
[2022-07-19] MEDS: PROPOFOL IV EMULSION 10MG/ML 100 ML IV PRN (04:24)
[2022-07-19] MEDS: NOREPINEPHRINE 8 MG/D5W 250 ML 250 ML IV SCH ×3 (04:35→13:43)
[2022-07-19] MEDS: GABAPENTIN 100 MG CAP PO SCH (05:37)
[2022-07-19 06:37] LABS: BASOPHILS # (AUTO) 0.2 (0.0-0.1); BASOPHILS % 0.8 % (0.0-1.0); EOSINOPHILS # (AUTO) 0.1 (0.0-0.4); EOSINOPHILS % 0.4 % (0.0-6.0); HEMATOCRIT 33.1 % (38.2-49.6); HEMOGLOBIN 10.2 g/dL (14.0-18.0); LYMPHOCYTES # (AUTO) 1.1 (1.0-3.2); LYMPHOCYTES % 5.9 % (18.0-39.1); MEAN CORPUSCULAR HEMOGLOBIN 25.4 pg (28-32); MEAN CORPUSCULAR HGB CONC 30.8 g/dL (31-35); MEAN CORPUSCULAR VOLUME 82.5 fL (81-99); MONOCYTES # (AUTO) 0.4 (0.2-0.8); MONOCYTES % 2.2 % (4.4-11.3); NEUTROPHILS # (AUTO) 15.1 (2.1-6.9); PLATELET COUNT 391 x10e3/uL (140-360); RED BLOOD COUNT 4.01 x10e6/uL (4.3-5.7); RED CELL DISTRIBUTION WIDTH 17.1 % (11.7-14.4)
[2022-07-19 07:16] LABS: ALBUMIN 0.8 g/dL (3.5-5.0); ALBUMIN/GLOBULIN RATIO 0.3 (0.8-2.0); ALKALINE PHOSPHATASE 122 IU/L (40-150); ANION GAP 15.6 mmol/L (8-16); BLOOD UREA NITROGEN 69 mg/dL (7-26); BUN/CREATININE RATIO 26 (6-25); CARBON DIOXIDE 17 mmol/L (22-29); CHLORIDE 108 mmol/L (98-107); CREATININE, SERUM 2.61 mg/dL (0.72-1.25); GLUCOSE 145 mg/dL (74-118); POTASSIUM 3.6 mmol/L (3.5-5.1); SODIUM 137 mmol/L (136-145)
[2022-07-19 07:17] LABS: ALANINE AMINOTRANSFERASE < 6 IU/L (0-55)
[2022-07-19 07:18] LABS: CALCIUM 5.3 mg/dL (8.4-10.2)
[2022-07-19] MEDS: INSULIN REGULAR, HUMAN 100 UNIT/1 ML SQ SCH (07:24)
[2022-07-19] MEDS: FAMOTIDINE 20 MG/2 ML VIAL IV SCH (07:59)
[2022-07-19] MEDS: HEPARIN SOD (PORCINE) 5,000 UNIT/ML VIAL SC SCH (08:02)
[2022-07-19] MEDS: METOLAZONE 5 MG TAB PO SCH (08:07)
[2022-07-19] MEDS: ASPIRIN 81 MG ENTERIC COATED PO SCH (08:07)
[2022-07-19] MEDS: ACETAMINOPHEN 325 MG TAB PO SCH (08:08)
[2022-07-19] MEDS ORDERED: SODIUM BICARBONATE 8.4% 50 ML in SODIUM CHLORIDE 0.45% 1,000 ML IV ONE (08:45)
[2022-07-19] MEDS ORDERED: ALBUMIN 25% 25GM 100ML 0.25 GM/ML BTL IV ONE ×2 (09:00→10:00)
[2022-07-19] MEDS ORDERED: ALBUMIN 25% 25GM 100ML 100 ML ONE (10:11)
[2022-07-19] MEDS ORDERED: CALCIUM GLUC 1 G/50 ML NACL 50 ML IV ONE (10:30)
[2022-07-19] MEDS ORDERED: VASOPRESSIN INJ 20 UNIT/ML VIAL ONE (11:10)
[2022-07-19] MEDS ORDERED: SODIUM CHLORIDE 0.9% 1000ML 1,000 ML ONE (11:11)
[2022-07-19] MEDS ORDERED: SODIUM CHLORIDE 0.9% 1000ML 1,000 ML IV ONE (11:30)
[2022-07-19] MEDS ORDERED: Morphine 4mg INJECTION 4 MG/ML INJ IV PRN (11:30)
[2022-07-19] MEDS ORDERED: VASOPRESSIN 60 UNIT in DEXTROSE 5% 50ML 57 ML IV SCH (11:30)
[2022-07-19] MEDS ORDERED: VASOPRESSIN 100 UNIT in DEXTROSE 5% 100ML 100 ML IV SCH (11:30)
[2022-07-19 12:43] LABS: ABG PH 7.22 (7.35-7.45)
[2022-07-19 12:44] LABS: ABG HCO3 28 mmol/L (22-26); ABG PCO2 67 mmHg (35-45); ABG PO2 80 mmHg (80-105); ABG TCO2 30
[2022-07-19 12:47] LABS: ABG PCO2 58 mmHg (35-45); ABG PH 7.26 (7.35-7.45); ABG PO2 82 mmHg (80-105)
[2022-07-19 12:48] LABS: ABG HCO3 26 mmol/L (22-26); ABG TCO2 28
== END 2022-07-19 21:02 | disposition expired | DRG 853 ==
LOC: ER 08:49 → ERHOLD 10:06 → MED/SURG 14:35 → MED/SURG2 20:36 → ICU 07-17 19:18
PROVIDERS: ADMIT Internal Medicine; ATTEND Internal Medicine
PROC: 0JBP0ZZ Excision of Left Lower Leg Subcutaneous Tissue and Fascia, Open Approach (ICD-10-PCS; 2022-07-07)
PROC: 0Y6C0Z1 Detachment at Right Upper Leg, High, Open Approach (ICD-10-PCS; 2022-07-09)
PROC: 02HV33Z Insertion of Infusion Device into Superior Vena Cava, Percutaneous Approach (ICD-10-PCS; 2022-07-15)
PROC: 30243N1 Transfusion of Nonautologous Red Blood Cells into Central Vein, Percutaneous Approach (ICD-10-PCS; 2022-07-15)
PROC: 0Y6F0ZZ Detachment at Right Knee Region, Open Approach (ICD-10-PCS; principal; 2022-07-15 12:46)
PROC: 5A12012 Performance of Cardiac Output, Single, Manual (ICD-10-PCS; 2022-07-17)
PROC: 03HC3DZ Insertion of Intraluminal Device into Left Radial Artery, Percutaneous Approach (ICD-10-PCS; 2022-07-18)
PROC: 3E043XZ Introduction of Vasopressor into Central Vein, Percutaneous Approach (ICD-10-PCS; 2022-07-19)
DX: A41.01 Sepsis due to Methicillin susceptible Staphylococcus aureus (principal); J69.0 Pneumonitis due to inhalation of food and vomit; J96.01 Acute respiratory failure with hypoxia; M72.6 Necrotizing fasciitis; R65.21 Severe sepsis with septic shock; E11.52 Type 2 diabetes mellitus with diabetic peripheral angiopathy with gangrene; L03.115 Cellulitis of right lower limb; I96 Gangrene, not elsewhere classified; E87.20 Acidosis, unspecified; T87.44 Infection of amputation stump, left lower extremity; L97.528 Non-pressure chronic ulcer of other part of left foot with other specified severity; L97.422 Non-pressure chronic ulcer of left heel and midfoot with fat layer exposed; N17.9 Acute kidney failure, unspecified; I13.0 Hypertensive heart and chronic kidney disease with heart failure and stage 1 through stage 4 chronic kidney disease, or unspecified chronic kidney disease; I50.22 Chronic systolic (congestive) heart failure; T87.43 Infection of amputation stump, right lower extremity; G96.08 Other cranial cerebrospinal fluid leak; D62 Acute posthemorrhagic anemia; N18.4 Chronic kidney disease, stage 4 (severe); E11.621 Type 2 diabetes mellitus with foot ulcer; Z74.09 Other reduced mobility; L89.896 Pressure-induced deep tissue damage of other site; Z89.512 Acquired absence of left leg below knee; B95.61 Methicillin susceptible Staphylococcus aureus infection as the cause of diseases classified elsewhere; E87.6 Hypokalemia; K80.20 Calculus of gallbladder without cholecystitis without obstruction; W19.XXXA Unspecified fall, initial encounter; R57.1 Hypovolemic shock; E11.21 Type 2 diabetes mellitus with diabetic nephropathy; Z79.4 Long term (current) use of insulin; N40.1 Benign prostatic hyperplasia with lower urinary tract symptoms; R33.8 Other retention of urine; Z91.199 Patient's noncompliance with other medical treatment and regimen due to unspecified reason; F17.200 Nicotine dependence, unspecified, uncomplicated; R60.0 Localized edema; I46.9 Cardiac arrest, cause unspecified; E11.22 Type 2 diabetes mellitus with diabetic chronic kidney disease; R77.8 Other specified abnormalities of plasma proteins; D64.9 Anemia, unspecified; S09.8XXA Other specified injuries of head, initial encounter; G93.0 Cerebral cysts; B96.89 Other specified bacterial agents as the cause of diseases classified elsewhere; B96.5 Pseudomonas (aeruginosa) (mallei) (pseudomallei) as the cause of diseases classified elsewhere; Z20.822 Contact with and (suspected) exposure to COVID-19
CPT/HCPCS: 0223U; 31500; 36415; 36556; 36600; 70450; 71045; 74018; 74176; 74470; 76770; 76937; 77001; 80048; 80053; 81001; 82270; 82550; 82553; 82570; 82805; 82948; 83540; 83735; 83880; 84100; 84156; 84466; 84484; 84550; 85025; 85610; 85730; 86850; 86900; 86920; 87040; 87071; 87075; 87186; 87205; 88304; 88307; 88311; 92950; 93005; 93306; 93925; 94003; 94799; 99252; 99285; C1769; J0171; J0330; J0690; J0696; J1644; J1940; J2001; J2185; J2250; J2270; J2370; J2405; J2543; J3010; J3370; J3480; J7030; J7040; J7050; J7070; J7120; J7121; P9016; P9047